=== PATIENT | male | born 1945 | race Caucasian/White ===

== ENCOUNTER 2021-10-04 06:02 | Inpatient (IN) | payer OTHER, MEDICARE ==
[2021-09-29 17:16] VITALS: BMI 29.7
[2021-10-04] MEDS ORDERED: CEFAZOLIN 2 GM in DEXTROSE 5%-WATER - 50 ML IVPB ONE (06:35)
[2021-10-04] MEDS ORDERED: MIDAZOLAM HCL 2 MG/2 ML SINGLE DOSE VIAL ONE ×3 (06:45→09:37)
[2021-10-04] MEDS ORDERED: BUPIVACAINE HCL 50 ML ONE (06:45)
[2021-10-04] MEDS ORDERED: BUPIVACAINE LIPOSOME/PF (EXPAREL) 266 MG/20 ML VIAL ONE (06:45)
[2021-10-04] MEDS ORDERED: SODIUM CHLORIDE 0.9% P/F 10 ML VIAL IJ ONE (06:45)
[2021-10-04] MEDS ORDERED: TRANEXAMIC ACID 1000 MG/10 ML VIAL IVPUSH ONE (08:00)
[2021-10-04] MEDS ORDERED: SUCCINYLCHOLINE CHLORIDE 200 MG/10 ML SYRINGE ONE (08:25)
[2021-10-04] MEDS ORDERED: TRANEXAMIC ACID 1000 MG/10 ML VIAL ONE (10:01)
[2021-10-04] MEDS ORDERED: HYDROmorphone HCL/PF 1 MG/ML VIAL IVPUSH PRN (11:09)
[2021-10-04] MEDS ORDERED: MAGNESIUM HYDROX 2400MG/30ML ORAL SUSPENSION 30 ML CUP PO PRN (11:10)
[2021-10-04] MEDS ORDERED: ONDANSETRON 4 MG/2 ML VIAL IVPUSH PRN (11:10)
[2021-10-04] MEDS ORDERED: MAG HYDROX/AL HYDROX/SIMETH 30 ML UNIT-DOSE CUP PO PRN (11:10)
[2021-10-04] MEDS ORDERED: LACTATED RINGERS SOLUTION 1,000 ML IV SCH (11:15)
[2021-10-04] MEDS ORDERED: oxyCODONE HCL 5 MG TABLET PO PRN (11:17)
[2021-10-04] MEDS ORDERED: ASPIRIN 81 MG CHEWABLE TABLETS ONE (11:35)
[2021-10-04] MEDS ORDERED: ACETAMINOPHEN 500 MG TABLET (FP) ONE (11:35)
[2021-10-04] MEDS: ASPIRIN COATED 81 MG TABLET.EC PO SCH ×3 (11:40→21:13)
[2021-10-04] MEDS: ACETAMINOPHEN 500 MG TABLET (FP) PO SCH ×4 (11:40→23:49)
[2021-10-04] MEDS: oxyCODONE HCL 5 MG TABLET PO PRN ×4 (13:37→23:49)
[2021-10-04] MEDS ORDERED: DEXTROSE 5%-WATER - 50 ML IVPB ONE ×2 (17:55→23:43)
[2021-10-04] MEDS ORDERED: ceFAZolin SODIUM 1 GM VIAL ONE ×2 (17:55→23:43)
[2021-10-04] MEDS: CEFAZOLIN 2 GM in DEXTROSE 5%-WATER - 50 ML IVPB SCH (18:03)
[2021-10-04] MEDS: GABAPENTIN 300 MG CAPSULE PO SCH (21:12)
[2021-10-04] MEDS: FAMOTIDINE 20 MG TABLET PO SCH (21:13)
[2021-10-04] MEDS: SENNOSIDES/DOCUSATE COMBO (SENNA PLUS) TABLET (UD) PO SCH (21:14)
[2021-10-04] MEDS ORDERED: ATORVASTATIN CA 10 MG TABLET (FP) PO SCH (22:00)
[2021-10-05] MEDS: CEFAZOLIN 2 GM in DEXTROSE 5%-WATER - 50 ML IVPB SCH (02:07)
[2021-10-05] MEDS: ACETAMINOPHEN 500 MG TABLET (FP) PO SCH (06:27)
[2021-10-05] MEDS: oxyCODONE HCL 5 MG TABLET PO PRN ×2 (06:28→09:14)
[2021-10-05 07:48] LABS: CALCIUM 8.6 mg/dl (8.5-10); CREATININE 1.1 mg/dl (0.55-1.3)
[2021-10-05 08:18] LABS: HEMATOCRIT 35.1 % (35.4-49); HEMOGLOBIN 12.1 GM/dL (11.7-16.9); MCH 34.6 pg (25.7-33.7); MCHC 34.4 g/dl (32.0-35.9); MEAN CELL VOLUME 100.6 fl (80-96); MEAN PLT VOLUME 8.9 fl (7.5-11.1); PLATELET COUNT 234 10^3/uL (134-434); RBC 3.49 M/mm3 (4.00-5.60); WHITE BLOOD COUNT 9.6 K/mm3 (4.0-10.0)
[2021-10-05] MEDS: FAMOTIDINE 20 MG TABLET PO SCH (09:12)
[2021-10-05] MEDS: GABAPENTIN 300 MG CAPSULE PO SCH (09:13)
[2021-10-05] MEDS: SENNOSIDES/DOCUSATE COMBO (SENNA PLUS) TABLET (UD) PO SCH (09:15)
[2021-10-05 09:38] VITALS: BP 121/60; PULSE 73; TEMP 98.6
[2021-10-05] MEDS ORDERED: ACETAMINOPHEN 500 MG TABLET (FP) PO SCH ×3 (09:45→15:00)
[2021-10-05] MEDS ORDERED: amLODIPine BESYLATE 10 MG TABLET (FP) PO SCH (10:00)
[2021-10-05] MEDS ORDERED: CHLORTHALIDONE 25 MG TABLET PO SCH (10:00)
[2021-10-05] MEDS ORDERED: LISINOPRIL 20 MG TABLET PO SCH (10:00)
[2021-10-05] MEDS ORDERED: MULTIVITAMINS (DAILY MVI) TABLET (FP) PO SCH (10:00)
== END 2021-10-05 12:54 | disposition home or self-care (01) | DRG 470 ==
LOC: FM/S 06:02 → EDSTATUS 07:30 → FM/S 12:03
PROVIDERS: ADMIT Orthopaedic Surgery; ATTEND Orthopaedic Surgery
PROC: 0SRC069 Replacement of Right Knee Joint with Oxidized Zirconium on Polyethylene Synthetic Substitute, Cemented, Open Approach (ICD-10-PCS; principal; 2021-10-04 08:48)
DX: M17.11 Unilateral primary osteoarthritis, right knee (principal)
CPT/HCPCS: 36415; 73560-TC-RT-FY; 80048; 85027; 88305-TC; 88311-TC; 94760; 97010-GP; 97116-GP; 97162-GP